=== PATIENT | female | born 1970 | race Caucasian/White ===

== ENCOUNTER 2019-01-31 18:19 | Inpatient (IN) | payer MEDICAID ==
[~2019-01-31] VITALS: Ht 154.9 cm; Wt 76.7 kg
[2019-01-31] MEDS ORDERED: COZAAR 25MG25 MG/TAB PO (18:21)
[2019-01-31] MEDS ORDERED: ASPIRIN 32325 MG/TAB PO (18:21)
[2019-01-31 18:25] VITALS: BP 130/92; PULSE 84; TEMP 97.6
[2019-01-31] MEDS ORDERED: FLEXERIL5 MG PO (19:19)
[2019-01-31 19:36] LABS: BASO % 0.3 % (0.0-2.0); EOS # 0.2 (0.0-0.7); EOS % 1.5 % (0-4.0); GRAN # 8.7 (1.4-6.5); GRAN % 74.1 % (42.2-75.2); HEMATOCRIT 40.5 % (37.0-47.0); HEMOGLOBIN 13.6 g/dl (12.5-16.0); LYMPH # 1.9 (1.2-3.4); LYMPH % 16.1 % (20.0-51.0); MEAN CELL VOLUME 85 fl (80.0-100.0); MEAN CORPUSCULAR HEMOGLOBIN 29 pg (27.0-31.0); MEAN CORPUSCULAR HGB CONC 34 g/dl (33.0-37.0); MEAN PLATELET VOLUME 9.6 fl (7.4-10.4); MONO # 0.9 (0.1-0.6); MONO % 7.3 % (1.7-9.3); PLATELET COUNT 185 K/mm3 (130-400); RED BLOOD COUNT 4.78 M/mm3 (4.10-5.30); REDCELL DISTRIBUTION WIDTH-CV 13.6 % (11.5-14.5)
[2019-01-31 19:37] LABS: INR 1.1 (0.8-3.0)
[2019-01-31 19:42] LABS: MAGNESIUM 1.8 mg/dL (1.6-2.3); PHOSPHOROUS 3.8 mg/dL (2.5-4.5)
[2019-01-31 19:59] LABS: ALBUMIN 3.4 gm/dL (3.5-5.0); BILIRUBIN,TOTAL 0.9 mg/dL (0.0-1.0); CALCIUM 8.8 mg/dL (8.4-10.2); CREATININE, serum 0.62 (0.52-1.25); POTASSIUM 4.2 mmol/L (3.4-5.0); TOTAL PROTEIN 6.2 gm/dL (6.4-8.2)
[2019-01-31 20:21] VITALS: BP 123/83; PULSE 80; TEMP 98.4
--- NOTE | 2019-01-31 21:54 | NUR ---
Patient resting in bed upon assessment. Pain medication administered, complains of headache after administration. This resolves after about 5 minutes. Patient has diminished hand outsole skiver on the left d/t previous stroke. Some slight facial drooping noted on the left side. Patient educated on utilizing call button for ambulation to the bathroom. IV fluids infusing to right forearm. Patient resting in bed watching television at this time.
[2019-02-01] VITALS (7 sets, daily range): BP systolic 113–145; BP diastolic 68–90; PULSE 80–100; TEMP 97.6–98.7
--- NOTE | 2019-02-01 00:57 | NUR ---
Patient awake in bed upon entering the room. States pain 8/10 on numeric scale to center upper abdomen radiating to right side of her back. PRN Hydromorphone given per orders.
[2019-02-01 06:44] LABS: BASO % 0.3 % (0.0-2.0); EOS # 0.1 (0.0-0.7); EOS % 1.3 % (0-4.0); GRAN # 8.4 (1.4-6.5); GRAN % 79.7 % (42.2-75.2); HEMOGLOBIN 12.1 g/dl (12.5-16.0); LYMPH # 1.1 (1.2-3.4); LYMPH % 10.1 % (20.0-51.0); MEAN CELL VOLUME 85 fl (80.0-100.0); MEAN CORPUSCULAR HEMOGLOBIN 29 pg (27.0-31.0); MEAN CORPUSCULAR HGB CONC 33 g/dl (33.0-37.0); MEAN PLATELET VOLUME 9.6 fl (7.4-10.4); MONO # 0.8 (0.1-0.6); MONO % 7.8 % (1.7-9.3); PLATELET COUNT 156 K/mm3 (130-400); RED BLOOD COUNT 4.24 M/mm3 (4.10-5.30); REDCELL DISTRIBUTION WIDTH-CV 13.7 % (11.5-14.5)
[2019-02-01 06:47] LABS: HEMATOCRIT 36.2 % (37.0-47.0)
--- NOTE | 2019-02-01 06:47 | NUR ---
Pain management continued throughout the night with relief using PRN Dilaudid. Denies any needs at this time.
[2019-02-01 07:02] LABS: ALBUMIN 3.1 gm/dL (3.5-5.0); BILIRUBIN,TOTAL 0.9 mg/dL (0.0-1.0); CHOLESTEROL RISK RATIO 4.5; CREATININE, serum 0.59 (0.52-1.25); POTASSIUM 3.9 mmol/L (3.4-5.0); TOTAL PROTEIN 5.9 gm/dL (6.4-8.2)
--- NOTE | 2019-02-01 07:15 | NUR ---
Report received from JULIOCESAR Cochran.
--- NOTE | 2019-02-01 08:00 | NUR ---
Assessment completed. Pt awake, in bed. Updated on plan of care r/t NPO status, surgical consult and pain medications. Pt verbalized understanding. Call light in reach.
[2019-02-01 08:27] LABS: MUCOUS Present /lpf; PH 5 (5-8); SQUAMOUS EPITHELIAL 0-2 /hpf; URINE APPEARANCE Clear; URINE BACTERIA None Seen /hpf; URINE BILIRUBIN Negative (NEGATIVE); URINE BLOOD 3+ (NEGATIVE); URINE COLOR Yellow; URINE GLUCOSE Negative (NEGATIVE); URINE KETONE 1+ (NEGATIVE); URINE LEUKOCYTE ESTERASE Negative (NEGATIVE); URINE NITRATE Negative (NEGATIVE); URINE PROTEIN(semi-quant) Negative (NEGATIVE); URINE RBC 0-2 /hpf; URINE UROBILINOGEN Negative (NEGATIVE)
[2019-02-01 08:31] LABS: COLLECTION METHOD CLEAN CATCH
--- NOTE | 2019-02-01 09:00 | NUR ---
Family at bedside. updated on pt status and plan of care. Pt's brother will take pt's home medications home.
[2019-02-01] MEDS ORDERED: TYLENOL 500MG500 MG PO (09:09)
--- NOTE | 2019-02-01 09:41 | NUR ---
BERNADINE perdomo attended clinical rounds and followed up with patient to discuss discharge plan. Also present was patient's brother and [id number]. Patient lives in [place] with her (Hernesto). Patient's PCP is Dr. Weiner and she uses the [place] [facility]. Patient uses a cane to ambulate and also has a wheelchair at home that she uses for public outings and long distances. Patient is independent with using the restroom but needs assistance with bathing which her provides. Patient also has a personal care worker (PLANNER CHIEF) through [employer] that comes into the home 3 days a week. Patient did not have a DPOA-HC completed but was intereseted in completing one while here. BERNADINE perdomo presented the form. Patient's brother read the form to her. Patient designated her . Patient Signed. BERNADINE perdomo and BERNADINE Rogers wtkyleed and signed. BERNADINE perdomo placed copy in chart and provided patient with original+2 copies. No identified needs at this time. BERNADINE to continue to follow to ensure safe discharge.
--- NOTE | 2019-02-01 09:50 | NUR ---
Ultrasound at bedside.
--- NOTE | 2019-02-01 11:50 | NUR ---
Pt in bed, talking with family at bedside. States her right abd/back pain improves with prn dilaudid. Pt wants to wait for shower at this time. Call light in reach.
--- NOTE | 2019-02-01 12:50 | NUR ---
resting in bed, bedside shift report received from JULIOCESAR Coyne
--- NOTE | 2019-02-01 12:52 | NUR ---
Report given to JULIOCESAR Lanier,
--- NOTE | 2019-02-01 14:30 | NUR ---
resting in bed, full assessment completed, see shift assessment for further info
--- NOTE | 2019-02-01 15:00 | NUR ---
c/o right sided upper abdominal pain, medicated with dilaudid 0.5mg slow IV
--- NOTE | 2019-02-01 15:15 | NUR ---
requesting to take a shower, JACQUE in to assist her with this
--- NOTE | 2019-02-01 19:02 | NUR ---
bedside shift report given to JULIOCESAR Sultana
--- NOTE | 2019-02-01 23:21 | NUR ---
Patient resting in bed. Complains of pain 10/10 on numeric scale. PRN Dilaudid administered. Noted to be effective. Upon reassessment, patient stated that the beef broth she drank made her stomach upset. Patient educated on sticking with ice chips for now if she needs something. No further complaints at this time. Will monitor pain.
[2019-02-02 04:04] VITALS: BP 108/85; PULSE 89; TEMP 98.1
[2019-02-02 06:49] LABS: BASO % 0.4 % (0.0-2.0); EOS # 0.2 (0.0-0.7); EOS % 2.8 % (0-4.0); GRAN # 6.1 (1.4-6.5); GRAN % 74.9 % (42.2-75.2); HEMOGLOBIN 11.4 g/dl (12.5-16.0); MEAN CELL VOLUME 86 fl (80.0-100.0); MEAN CORPUSCULAR HEMOGLOBIN 29 pg (27.0-31.0); MEAN CORPUSCULAR HGB CONC 33 g/dl (33.0-37.0); MEAN PLATELET VOLUME 9.5 fl (7.4-10.4); MONO # 0.7 (0.1-0.6); MONO % 8.8 % (1.7-9.3); PLATELET COUNT 165 K/mm3 (130-400); REDCELL DISTRIBUTION WIDTH-CV 13.2 % (11.5-14.5)
[2019-02-02 07:00] LABS: ALBUMIN 2.9 gm/dL (3.5-5.0); BILIRUBIN,TOTAL 1.2 mg/dL (0.0-1.0); CREATININE, serum 0.54 (0.52-1.25); POTASSIUM 3.7 mmol/L (3.4-5.0); TOTAL PROTEIN 5.7 gm/dL (6.4-8.2)
[2019-02-02 07:02] LABS: HEMATOCRIT 34.2 % (37.0-47.0)
[2019-02-02 07:41] VITALS: BP 125/78; PULSE 92; TEMP 97.8
--- NOTE | 2019-02-02 07:54 | NUR ---
Alert and oriented X4. Very pleasant. Left sided weakness d/t hx of stroke. Does very well. Standbye assist with cane. Tolerated well. Reports not passing gas or bowel movement since admission. REports pain at an 8/10 in the back that radiates to the left upper quadrant of abdomen. No needs at this time. Call light in reach. Will continue to monitor.
--- NOTE | 2019-02-02 08:15 | NUR ---
Patient in bed resting. Alert and oriented x 3. Shift assessment complete. Student in room with patient. Patient c/o pain 8/10 in back that radiats to LUQ, medications given per orders. Left sided neglect noted. IV fluids infusing via pump. Denies further needs at this time.
--- NOTE | 2019-02-02 11:39 | NUR ---
First visit from the putter in. No needs right now.
[2019-02-02 12:00] VITALS: BP 143/93; PULSE 83; TEMP 97.9
[2019-02-02 15:17] VITALS: BP 128/85; PULSE 78; TEMP 97.9
--- NOTE | 2019-02-02 18:17 | NUR ---
Patient resting in bed with spouse visiting. Pain management continues. No complaints of pain or discomfort at this time. Call light within reach. Reported off to ellie, JULIOCESAR Randle.
--- NOTE | 2019-02-02 18:52 | NUR ---
Patient has been up ambulating in room and guaman with student. States pain 9/10 to back radiating to abdomen, medications given per orders. IVF continue to infuse via pump per orders. Denies further needs at this time.
[2019-02-02 19:15] VITALS: BP 130/83; PULSE 79; TEMP 98.4
[2019-02-02 23:08] VITALS: BP 142/85; PULSE 72; TEMP 97.9
--- NOTE | 2019-02-03 01:51 | NUR ---
Patient resting with eyes closed at this time. Requests dilaudid roughly every 4 hours. Noted to be effective. Fluids continue to right forearm. Patient denies any further needs.
[2019-02-03 03:56] VITALS: BP 132/75; PULSE 89; TEMP 97.9
--- NOTE | 2019-02-03 06:29 | NUR ---
Patient resting in bed with eyes closed. Pain well controlled throughout the night. Denies any further needs. Will report off to day shift nurse.
[2019-02-03 07:39] LABS: BASO % 0.3 % (0.0-2.0); EOS # 0.3 (0.0-0.7); EOS % 4.7 % (0-4.0); GRAN # 4.3 (1.4-6.5); GRAN % 65.3 % (42.2-75.2); HEMOGLOBIN 11.3 g/dl (12.5-16.0); LYMPH # 1.2 (1.2-3.4); LYMPH % 18.7 % (20.0-51.0); MEAN CELL VOLUME 84 fl (80.0-100.0); MEAN CORPUSCULAR HEMOGLOBIN 29 pg (27.0-31.0); MEAN CORPUSCULAR HGB CONC 34 g/dl (33.0-37.0); MEAN PLATELET VOLUME 9.9 fl (7.4-10.4); MONO # 0.7 (0.1-0.6); MONO % 10.1 % (1.7-9.3); PLATELET COUNT 163 K/mm3 (130-400); RED BLOOD COUNT 3.95 M/mm3 (4.10-5.30); REDCELL DISTRIBUTION WIDTH-CV 13.3 % (11.5-14.5)
[2019-02-03 07:44] LABS: CALCIUM 8.1 mg/dL (8.4-10.2); CREATININE, serum 0.5 (0.52-1.25); POTASSIUM 3.2 mmol/L (3.4-5.0)
[2019-02-03 07:50] LABS: HEMATOCRIT 33.3 % (37.0-47.0)
--- NOTE | 2019-02-03 08:27 | NUR ---
PT IN BED AND AWAKENS EASILY. ALERT AND ORIENTED X 4 PT STATES PAIN IS 8 OUT OF 10 SCALE. MADE WORSE WHEN MOVING. DILAUDED 0.5MG GIVEN IV FOR PRN PAIN TO ABDOMEN. BOWEL SOUNDS PRESENT ALL FOUR QUADS. RESP EVEN AND UNLABORED. PT HAS LEFT SIDED WEAKNESS TO LEFT LEG AND PARTIAL PARALYSIS TO LEFT ARM. HAS COMMODE NEXT TO BEDSIDE AND REMINDED PT TO USE CALL LIGHT WHEN NEEDING TO AMBULATE TO COMMODE. PT VERBALIZED UNDERSTANDING.
[2019-02-03 08:41] VITALS: BP 140/81; PULSE 79; TEMP 97.5
--- NOTE | 2019-02-03 08:55 | NUR ---
Patient in bed resting, alert and oriented x 3. Shift assessment complete. States mild pain in back that radiates to abdomen. IV fluids infusing to right AC via pump per orders. Left sided neglect noted d/t history of stroke. Patient independent in room with cane. Denies further needs at this time.
--- NOTE | 2019-02-03 09:40 | NUR ---
Hospitalist and care team in to see patient. Dr. Stone in to see patient.
[2019-02-03] MEDS ORDERED: NORCO 325 MG-51 TAB PO (11:59)
[2019-02-03 12:21] VITALS: BP 137/97; PULSE 75; TEMP 97.7
--- NOTE | 2019-02-03 13:30 | NUR ---
Discharge instructions reviewed with patient. Student provided instructions. INT discontinued by acute care nursing assistant. catheter tip intact. Patient verbalized understanding. Denies further questions. Patient out by wheelchair.
--- NOTE | 2019-02-03 13:38 | NUR ---
WENT OVER DISCHARGE SUMMARY INCLUDING MEDICATION CHANGES, NEW PRESCRIPTION FOR [facility], PHYSICIAN FOLLOW UP, S/S OF INFECTION, AND WHEN TO CALL THE DOCTOR. PT VERBALIZED UNDERSTANDING. GATHERED BELONGINGS. HERE AT BEDSIDE. 18g IV REMOVED WITH CATHETER INTACT, PT TOLERATED WELL. PT LEFT FACILITY VIA WHEELCHAIR TO PRIVATE VEHICLE, WITH DRIVING.
== END 2019-02-03 13:30 | disposition home or self-care (01) | DRG 439 ==
LOC: SURG 18:19
PROVIDERS: Nurse Practitioner Family; Physician Assistant; ADMIT Internal Medicine
DX: K85.90 Acute pancreatitis without necrosis or infection, unspecified (principal); I69.354 Hemiplegia and hemiparesis following cerebral infarction affecting left non-dominant side; Q85.01 Neurofibromatosis, type 1; I10 Essential (primary) hypertension; E78.5 Hyperlipidemia, unspecified; F41.0 Panic disorder [episodic paroxysmal anxiety]; Z87.891 Personal history of nicotine dependence; E87.6 Hypokalemia; K80.20 Calculus of gallbladder without cholecystitis without obstruction
CPT/HCPCS: 99222-AI; 99231-AI; 99239; J1170; J1650; J2405; J7030

== ENCOUNTER 2020-04-10 10:57 | Outpatient (RCR) | payer MEDICAID ==
[~2020-04-10 10:57] MED LIST: ASPIRIN 32325 MG/TAB PO; COZAAR 25MG25 MG/TAB PO; FLEXERIL5 MG PO; NORCO 325 MG-51 TAB PO; TYLENOL 500MG500 MG PO
== END 2020-07-09 ==
LOC: WSC
DX: R25.2 Cramp and spasm (principal)

== ENCOUNTER 2020-07-03 11:00 | Outpatient (RCR) | payer MEDICAID ==
[2020-07-11] MEDS ORDERED: LIPITOR 10MG10 MG PO (09:13)
[2020-07-11] MEDS ORDERED: PLAVIX 75MG TAB75 MG PO (09:13)
[2020-07-11] MEDS ORDERED: LEXAPRO 5MG5 MG PO (09:14)
[2020-07-11] MEDS ORDERED: EMGALITY120 MG/1 M SQ (09:14)
[2020-07-11] MEDS ORDERED: PERCOCET 325 MG1 TA2 PO (09:15)
[2020-07-11] MEDS ORDERED: NORVASC 5MG5 MG/TAB PO (09:15)
== END 2020-07-14 | disposition home or self-care (01) ==
LOC: MKS.ESL.PT
DX: R25.2 Cramp and spasm (principal)

== ENCOUNTER 2020-07-11 10:00 | Outpatient (CLI) | payer MEDICAID ==
[2020-07-11] VITALS (8 sets, daily range): BP systolic 123–135; BP diastolic 88–96; PULSE 71–82; TEMP 97.6
[~2020-07-11] VITALS: Ht 155 cm; Wt 76.9 kg
[2020-07-11 09:47] LABS: HEMATOCRIT 43.4 % (37.0-47.0); HEMOGLOBIN 14.7 g/dl (12.5-16.0); MEAN CELL VOLUME 84 fl (80.0-100.0); MEAN CORPUSCULAR HEMOGLOBIN 28 pg (27.0-31.0); MEAN CORPUSCULAR HGB CONC 34 g/dl (33.0-37.0); MEAN PLATELET VOLUME 9.9 fl (7.4-10.4); PLATELET COUNT 268 K/mm3 (130-400); REDCELL DISTRIBUTION WIDTH-CV 12.3 % (11.5-14.5)
[2020-07-11 09:50] LABS: CREATININE, serum 0.73 (0.52-1.25); POTASSIUM 3.9 mmol/L (3.4-5.0)
[2020-07-11 09:57] LABS: PROTHROMBIN TIME 11.4 SECONDS (9.7-12.8)
[~2020-07-11 10:00] MED LIST changes: +EMGALITY120 MG/1 M SQ; +LEXAPRO 5MG5 MG PO; +LIPITOR 10MG10 MG PO; +NORVASC 5MG5 MG/TAB PO; +PERCOCET 325 MG1 TA2 PO; +PLAVIX 75MG TAB75 MG PO
--- NOTE | 2020-07-11 12:00 | NUR ---
DC instructions reviewed with pt and her daughter. Both express understanding. Pt is assisted out by wheelchair with personal belongings and loop recorder equipment. Dressing over incision site remains clean, dry and intact. IV DC'd with catheter intact, and bleeding at site controlled.
== END 2020-07-11 12:10 | disposition home or self-care (01) ==
LOC: COL.RAD 10:00
PROVIDERS: Internal Medicine Adult Congenital Heart Disease
DX: I63.9 Cerebral infarction, unspecified (principal); I08.1 Rheumatic disorders of both mitral and tricuspid valves
CPT/HCPCS: J2704

== ENCOUNTER 2020-09-30 13:00 | Outpatient (RCR) | payer MEDICAID | END 2020-10-13 | disposition home or self-care (01) | LOC: MKS.ESL.OT | DX: G81.94 Hemiplegia, unspecified affecting left nondominant side (principal) ==

== ENCOUNTER → 2020-10-14 | Outpatient (RCR) | payer MEDICAID | LOC: MKS.ESL.OT | DX: R25.9 Unspecified abnormal involuntary movements (principal) ==

== ENCOUNTER 2020-12-23 11:15 | Outpatient (RCR) | payer MEDICARE, MEDICAID ==
[~2020-12-23 11:15] MED LIST changes: -LIPITOR 10MG10 MG PO; +LIPITOR 40MG TA40 MG PO; +NORCO 325 MG-7.1 TAB PO; -PERCOCET 325 MG1 TA2 PO
== END 2021-01-14 | disposition home or self-care (01) ==
LOC: MKS.ESL.PT
DX: G81.14 Spastic hemiplegia affecting left nondominant side (principal)

== ENCOUNTER 2021-03-06 13:50 | Outpatient (RCR) | payer MEDICARE, MEDICAID | END 2021-06-04 | disposition home or self-care (01) | LOC: WSST | DX: R41.841 Cognitive communication deficit (principal) ==

== ENCOUNTER → 2021-04-18 | Outpatient (CLI) | payer MEDICARE, MEDICAID ==
[~2021-04-18] MED LIST changes: +LUNESTA2 MG PO; +NEURONTIN600 MG/TAB PO; +VOLTAREN GEL 1%1 TU TP
== END ==
LOC: COL.CARD 09:08
DX: G81.14 Spastic hemiplegia affecting left nondominant side (principal); I63.411 Cerebral infarction due to embolism of right middle cerebral artery; R56.9 Unspecified convulsions; C72.30 Malignant neoplasm of unspecified optic nerve; Q85.00 Neurofibromatosis, unspecified

== ENCOUNTER 2021-04-21 14:45 | Outpatient (RCR) | payer MEDICARE, MEDICAID ==
[~2021-04-21 14:45] MED LIST changes: -LUNESTA2 MG PO; -NEURONTIN600 MG/TAB PO; -VOLTAREN GEL 1%1 TU TP
== END 2021-05-22 | disposition home or self-care (01) ==
LOC: MKS.ESL.PT
DX: I69.359 Hemiplegia and hemiparesis following cerebral infarction affecting unspecified side (principal)

== ENCOUNTER 2021-08-08 12:55 | Day surgery (SDC) | payer MEDICARE, MEDICAID ==
[2021-08-08] VITALS (7 sets, daily range): BP systolic 102–128; BP diastolic 77–93; PULSE 78–90; TEMP 98.3
[~2021-08-08] VITALS: Ht 154.9 cm; Wt 79.1 kg
[2021-08-08] MEDS ORDERED: VOLTAREN GEL 1%1 TU TP (13:07)
[2021-08-08] MEDS ORDERED: LUNESTA2 MG PO (13:10)
[2021-08-08] MEDS ORDERED: NEURONTIN600 MG/TAB PO (13:11)
--- NOTE | 2021-08-08 14:13 | NUR ---
industrial relations worker met with patient alone as she had verbalized emotional struggles. Patient was open and shared that she doesn't feel like she wants "to be here anymore" and that she is tired of her struggles due to her physical limitations from a previous stroke. Worker asked patient if she did not want to be alive and if she had plans to harm herself. Patient stated she would never harm herself as she would then "go to hell". Patient states she could never harm herself. Patient states that Xochilt Henry, her primary care provider, had her on Lexapro and she doesn't think it helped and told the nursing staff she stopped taking it. Patient stated that she has a pentecostalism and Reproductive Endocrinologist Shan as an option reach out to for support. Patient states she has been in therapy with [facility] and needs to call and schedule a zoom therapy visit. Patient has medicaid and can also utilize medicaid transportation program. Worker obtained patient's permission to contact Xochilt's office and advise of the above struggles and needing to get an appointment set. Worker provided support and encouragement that patient has the above mentioned support, however, needs to take the step to reach out to them. Worker collaborated with the patient's nurse regarding the above information. Worker left a message with Xochilt's nurse to call regarding the patient.
--- NOTE | 2021-08-08 14:54 | NUR ---
ash worker spoke with Xochilt Galan's nurse and advised of patient's concerns.
--- NOTE | 2021-08-08 16:42 | NUR ---
Pt returned via cart approx 1520 to bay 3. Pt drowsy, arousable to name. Spouse present in room when Dr Ayers in to visit post procedure. VSS-see flowsheet. Pt to stay no less than 2 hours post procedure to monitor for abdominal pain, nausea or vomiting. Pt has reported "discomfort, but not bad." Pt also tolerated orange jello. Assisted pt in eating since she is limited with her LUE.
--- NOTE | 2021-08-08 17:07 | NUR ---
Dr Ayers notified of pts progress and okay to dc home. IV removed, pressure dressing applied. Staff assisted pt off cart after dressed. Discharge teaching completed with pt and and verbalized understanding. Taken via wheelchair to private vehicle for dc home with to drive.
== END 2021-08-08 17:06 | disposition home or self-care (01) ==
LOC: SDCO 12:55
DX: K31.5 Obstruction of duodenum (principal); K83.8 Other specified diseases of biliary tract; K86.89 Other specified diseases of pancreas; K31.89 Other diseases of stomach and duodenum; I10 Essential (primary) hypertension; I48.0 Paroxysmal atrial fibrillation; E78.5 Hyperlipidemia, unspecified; J45.909 Unspecified asthma, uncomplicated; F41.9 Anxiety disorder, unspecified; F32.A Depression, unspecified; G43.909 Migraine, unspecified, not intractable, without status migrainosus; E66.9 Obesity, unspecified; I69.332 Monoplegia of upper limb following cerebral infarction affecting left dominant side; I69.311 Memory deficit following cerebral infarction; I69.328 Other speech and language deficits following cerebral infarction; F17.210 Nicotine dependence, cigarettes, uncomplicated; Z90.6 Acquired absence of other parts of urinary tract; Z95.818 Presence of other cardiac implants and grafts; Z86.718 Personal history of other venous thrombosis and embolism; Z79.02 Long term (current) use of antithrombotics/antiplatelets; Z79.899 Other long term (current) drug therapy
CPT/HCPCS: C1769; J2704; J7030; Q9967

== ENCOUNTER 2021-08-26 13:00 | Outpatient (RCR) | payer MEDICARE, MEDICAID ==
[~2021-08-26 13:00] MED LIST changes: +LUNESTA2 MG PO; +NEURONTIN600 MG/TAB PO; +VOLTAREN GEL 1%1 TU TP
== END 2021-09-01 | disposition home or self-care (01) ==
LOC: MKS.ESL.PT
DX: I69.954 Hemiplegia and hemiparesis following unspecified cerebrovascular disease affecting left non-dominant side (principal)

== ENCOUNTER 2021-11-20 14:30 | Outpatient (RCR) | payer MEDICARE, MEDICAID ==
[2022-03-04] VITALS (42 sets, daily range): O2SAT 85–98
== END 2021-12-08 | disposition home or self-care (01) ==
LOC: MKS.ESL.OT
DX: I69.354 Hemiplegia and hemiparesis following cerebral infarction affecting left non-dominant side (principal)

== ENCOUNTER 2021-12-30 12:45 | Outpatient (RCR) | payer MEDICARE, MEDICAID | END 2022-01-08 | disposition home or self-care (01) | LOC: MKS.ESL.PT | DX: G81.92 Hemiplegia, unspecified affecting left dominant side (principal) ==

== ENCOUNTER 2022-03-03 14:14 | Inpatient (IN) | payer MEDICARE, MEDICAID ==
[2022-03-03] VITALS (297 sets, daily range): BP systolic 71–132; BP diastolic 50–106; PULSE 16–89; TEMP 98.1–98.7; O2SAT 88–99
[~2022-03-03] VITALS: Ht 154.9 cm; Wt 76.2 kg
[2022-03-03 15:04] LABS: BASO # 0.1 K/mm3 (0.0-0.2); BASO % 0.8 % (0.0-2.0); EOS # 0.2 K/mm3 (0.0-0.7); EOS % 1.9 % (0.0-4.0); GRAN # 5.2 K/mm3 (1.4-6.5); GRAN % 66.5 % (42.2-75.2); HEMATOCRIT 43.1 % (37.0-47.0); HEMOGLOBIN 14.6 g/dl (12.5-16.0); LYMPH # 1.8 K/mm3 (1.2-3.4); LYMPH % 22.7 % (20.0-51.0); MEAN CELL VOLUME 84 fl (80.0-100.0); MEAN CORPUSCULAR HEMOGLOBIN 28 pg (27-31); MEAN CORPUSCULAR HGB CONC 34 g/dl (33.0-37.0); MEAN PLATELET VOLUME 9.3 fl (7.4-10.4); MONO # 0.6 K/mm3 (0.1-0.6); MONO % 7.2 % (1.7-9.3); PLATELET COUNT 191 K/mm3 (130-400); RED BLOOD COUNT 5.15 M/mm3 (4.10-5.30); REDCELL DISTRIBUTION WIDTH-CV 13.1 % (11.5-14.5)
[2022-03-03 15:09] LABS: INR 1.1 (0.8-3.0); PROTHROMBIN TIME 12.5 SECONDS (9.7-12.8)
[2022-03-03 15:21] LABS: ALBUMIN 3.4 gm/dL (3.5-5.0); BILIRUBIN,TOTAL 0.5 mg/dL (0.2-1.2); C-REACTIVE PROTEIN 1.05 mg/dL (0.00-0.50); CALCIUM 8.8 mg/dL (8.4-10.2); CREATININE, serum 0.73 mg/dL (0.57-1.11); POTASSIUM 3.9 mmol/L (3.5-4.5); TOTAL PROTEIN 6.5 gm/dL (6.2-8.1)
[2022-03-03 15:32] LABS: COLLECTION METHOD IN
[2022-03-03 15:38] LABS: MUCOUS Present (NOT PRESENT); PH 6 (5-8); SQUAMOUS EPITHELIAL 0-2 /hpf (0-10); URINE APPEARANCE Hazy (CLEAR/HAZY); URINE BACTERIA None Seen /hpf (NONE SEEN); URINE BILIRUBIN Negative (NEGATIVE); URINE BLOOD Negative (NEGATIVE); URINE COLOR Yellow (YELLOW); URINE GLUCOSE Negative (NEGATIVE); URINE KETONE Negative (NEGATIVE); URINE LEUKOCYTE ESTERASE Negative (NEGATIVE); URINE NITRATE Negative (NEGATIVE); URINE PROTEIN(semi-quant) Negative (NEGATIVE); URINE RBC 0-2 /hpf (0-2)
[2022-03-03] MEDS ORDERED: ZYRTEC 10MG10 MG PO (17:19)
[2022-03-03] MEDS ORDERED: PROTONIX 40MG T40 MG PO (17:20)
[2022-03-03] MEDS ORDERED: AMBIEN CR 12.12.5 MG PO (17:20)
[2022-03-03] MEDS ORDERED: KLONOPIN2 MG PO (17:20)
[2022-03-03] MEDS ORDERED: LEXAPRO 10MG10 MG PO (17:20)
[2022-03-03] MEDS ORDERED: COMBIRESP IH (17:21)
[2022-03-04] VITALS (494 sets, daily range): BP systolic 123–171; BP diastolic 77–113; PULSE 75–99; TEMP 97.8–98.7; O2SAT 69–99
[2022-03-04 05:27] LABS: BASO % 0.4 % (0.0-2.0); EOS # 0.2 K/mm3 (0.0-0.7); EOS % 2.2 % (0.0-4.0); GRAN # 4.4 K/mm3 (1.4-6.5); GRAN % 65.2 % (42.2-75.2); HEMATOCRIT 38.1 % (37.0-47.0); LYMPH # 1.6 K/mm3 (1.2-3.4); LYMPH % 24.1 % (20.0-51.0); MEAN CELL VOLUME 88 fl (80.0-100.0); MEAN CORPUSCULAR HEMOGLOBIN 29 pg (27-31); MEAN CORPUSCULAR HGB CONC 33 g/dl (33.0-37.0); MEAN PLATELET VOLUME 9.9 fl (7.4-10.4); MONO # 0.5 K/mm3 (0.1-0.6); MONO % 7.2 % (1.7-9.3); PLATELET COUNT 165 K/mm3 (130-400); RED BLOOD COUNT 4.33 M/mm3 (4.10-5.30)
[2022-03-04 05:29] LABS: HEMOGLOBIN 12.4 g/dl (12.5-16.0)
[2022-03-04 05:40] LABS: ALBUMIN 2.8 gm/dL (3.5-5.0); CALCIUM 6.8 mg/dL (8.4-10.2); CHOLESTEROL RISK RATIO 7.6; CREATININE, serum 0.54 mg/dL (0.57-1.11); MAGNESIUM 1.5 mg/dL (1.6-2.6); PHOSPHOROUS 2.7 mg/dL (2.3-4.7)
[2022-03-04 05:47] LABS: POTASSIUM 2.9 mmol/L (3.5-4.5)
--- NOTE | 2022-03-04 06:33 | NUR ---
ASSUMED CARE OF PATIENT AFTER RECEIVING BEDSIDE REPORT. ASSESSMENT COMPLETED, VSS. PATIENT DENIES COMPLAINTS OR CONCERNS. PATIENT'S NEUROLOGICAL STATUS CONTINUED TO IMPROVE THROUGHOUT THE SHIFT. DAY SHIFT REPORTED AN NIH OF 10, [facility] INITIAL NIH WAS 7 AND IMRPOVED TO 6. PATIENT BECAME HYPOTENSIVE AT ONE POINT OVER NIGHT, REPORTED TO DR. MENESES, NO NEW ORDERS RECEIVED AND INSTRUCTED RN TO MONITOR PATIENT FOR SYMPTOMS. SPOKE WITH HOSPITALIST WHO GAVE AN ORDER FOR MAINTENANCE FLUIDS AND ALBUMIN. PATIENT TOLERATED WELL. NO ACUTE EVENTS OVERNIGHT. BEDSIDE REPORT TO BE GIVEN TO ONCOMING SHIFT.
--- NOTE | 2022-03-04 07:30 | NUR ---
Teresa from [facility] bedside.
--- NOTE | 2022-03-04 09:21 | NUR ---
SW met with the patient to discuss discharge plan. The patient lives in [place] with her , Hernesto (ph#[phone]). She reports needing assistance with bathing and has a cane and wheelchair. She states that she primarily uses the cane. She states that her daughter, Yane Singh, is employed through [employer] and is her caregiver. She states that she receives services Wednesday- from around 8-11 AM to 4 PM. Her daughter helps her bathe. The patient's primary care provider is Xochilt Henry PA-C and she receives her medications from [place] [facility]. The patient's DPOA-HC is in EMR and it designates her . The patient plans on returning home with her and rusuming services through [employer] upon discharge. PT/OT have been ordered. SW to continue to monitor. *Discharge plan: home with *
--- NOTE | 2022-03-04 11:54 | NUR ---
PT LEAVING TO MRI VIA WHEELCHAIR WITH TECH.
--- NOTE | 2022-03-04 15:53 | NUR ---
PT STATED THAT SHE IS STARTING TO GET ANXIOUS IN THE ROOM, THAT SHE STARTS TO FEEL ANXIOUS WHEN SHE CANNOT GET UP AND WALK AROUND.
[2022-03-05] VITALS: BP 127/87; PULSE 89; TEMP 97.5
--- NOTE | 2022-03-05 03:53 | NUR ---
PATIENT UP TO ROOM 343. ALERT AND ORIENTED. AMBULATED TO BED WITH STANDBY ASSIST. L SIDED WEAKNESS NOTED. L FACIAL DROOP ALSO PRESENT. PATIENT ALERT AND ORIENTED. TELE REPLACED AND NEW PADS APPLIED. IV TO R AC REMOVED. R HAND IV PATENT AND FLUSHES. DENIES PAIN AT THIS TIME. MED RX COMPLETED.
[2022-03-05 04:19] VITALS: BP 114/76; PULSE 82; TEMP 98.6
[2022-03-05 06:40] LABS: BASO % 0.4 % (0.0-2.0); EOS # 0.2 K/mm3 (0.0-0.7); GRAN # 4.6 K/mm3 (1.4-6.5); GRAN % 60.3 % (42.2-75.2); HEMATOCRIT 38.8 % (37.0-47.0); HEMOGLOBIN 13.1 g/dl (12.5-16.0); LYMPH # 2.2 K/mm3 (1.2-3.4); LYMPH % 28.6 % (20.0-51.0); MEAN CELL VOLUME 85 fl (80.0-100.0); MEAN CORPUSCULAR HEMOGLOBIN 29 pg (27-31); MEAN CORPUSCULAR HGB CONC 34 g/dl (33.0-37.0); MEAN PLATELET VOLUME 9.7 fl (7.4-10.4); MONO # 0.6 K/mm3 (0.1-0.6); MONO % 8.2 % (1.7-9.3); PLATELET COUNT 183 K/mm3 (130-400); RED BLOOD COUNT 4.57 M/mm3 (4.10-5.30); REDCELL DISTRIBUTION WIDTH-CV 13.2 % (11.5-14.5)
[2022-03-05 07:04] LABS: ALBUMIN 3.2 gm/dL (3.5-5.0); CALCIUM 8.5 mg/dL (8.4-10.2); CREATININE, serum 0.71 mg/dL (0.57-1.11); MAGNESIUM 2.6 mg/dL (1.6-2.6); PHOSPHOROUS 4.8 mg/dL (2.3-4.7); POTASSIUM 3.8 mmol/L (3.5-4.5)
[2022-03-05 07:40] VITALS: BP 126/77; PULSE 70; TEMP 97.8
[2022-03-05] MEDS ORDERED: LIPITOR20 MG PO (09:08)
[2022-03-05] MEDS ORDERED: NICODERM C21 MG/PATC TD (09:09)
[2022-03-05] MEDS ORDERED: CHANTIX 0.5MG0.5 MG PO (09:11)
== END 2022-03-05 11:00 | disposition home or self-care (01) | DRG 62 ==
LOC: COL.ER 14:14 → ICU 16:33 → SURG 16:33
PROVIDERS: Family Medicine; Internal Medicine; ADMIT Internal Medicine
DX: I63.9 Cerebral infarction, unspecified (principal); I69.954 Hemiplegia and hemiparesis following unspecified cerebrovascular disease affecting left non-dominant side; Q85.01 Neurofibromatosis, type 1; E78.5 Hyperlipidemia, unspecified; R47.81 Slurred speech; F41.0 Panic disorder [episodic paroxysmal anxiety]; I10 Essential (primary) hypertension; G89.29 Other chronic pain; F17.210 Nicotine dependence, cigarettes, uncomplicated; M25.519 Pain in unspecified shoulder; R29.810 Facial weakness; E78.1 Pure hyperglyceridemia
CPT/HCPCS: 99223-AI; 99233-AI; 99239; A9575; J3101; J3475; J7030; P9047; Q9967

== ENCOUNTER 2022-03-10 20:05 | Observation (INO) | payer MEDICARE, MEDICAID ==
[~2022-03-10] VITALS: Ht 152.4 cm; Wt 77.0 kg
[~2022-03-10 20:05] MED LIST changes: +AMBIEN CR 12.12.5 MG PO; +CHANTIX 0.5MG0.5 MG PO; +COMBIRESP IH; +KLONOPIN2 MG PO; +LEXAPRO 10MG10 MG PO; +LIPITOR20 MG PO; +NICODERM C21 MG/PATC TD; +PROTONIX 40MG T40 MG PO; +ZYRTEC 10MG10 MG PO
--- NOTE | 2022-03-10 22:40 | NUR ---
Arrived via EMS from [facility] ER, DX r/o CVA, states she feels like she is back to her baseling, no facial drooping or slurred speech noted- has left sided weaknes from previous stroke- Up to bathroom with assist/cane, Tele on, INT started to left wrist - states left shoulder pain -requesting her home dose of Java- will let the CHANEL helms know
[2022-03-10 23:40] VITALS: BP 124/74; PULSE 83; TEMP 97.8
[2022-03-11 03:26] VITALS: BP 111/76; PULSE 73; TEMP 97.6
--- NOTE | 2022-03-11 05:18 | NUR ---
Has been sleeping since [place] was given for left arm/shoulder chronic pain { states has a shoulder dislocation} Did have a Pepsi tiara kline by Kathia BUCHANAN, no problems swollowing. No slurred speech or facial droop noted
--- NOTE | 2022-03-11 05:59 | NUR ---
PT REFUSED THIS MRI. SHE STATES THAT DR LAWSON WILL ORDER ONE WHEN SHE SEES HER ON 04/06 AND INSURANCE WILL NOT WANT TO PAY FOR TWO.
[2022-03-11 06:18] LABS: BASO % 0.4 % (0.0-2.0); EOS # 0.2 K/mm3 (0.0-0.7); EOS % 2.1 % (0.0-4.0); GRAN # 5.4 K/mm3 (1.4-6.5); GRAN % 59.7 % (42.2-75.2); HEMATOCRIT 42.4 % (37.0-47.0); LYMPH # 2.6 K/mm3 (1.2-3.4); LYMPH % 28.7 % (20.0-51.0); MEAN CELL VOLUME 86 fl (80.0-100.0); MEAN CORPUSCULAR HEMOGLOBIN 29 pg (27-31); MEAN CORPUSCULAR HGB CONC 33 g/dl (33.0-37.0); MEAN PLATELET VOLUME 9.9 fl (7.4-10.4); MONO # 0.8 K/mm3 (0.1-0.6); MONO % 8.4 % (1.7-9.3); PLATELET COUNT 185 K/mm3 (130-400); RED BLOOD COUNT 4.91 M/mm3 (4.10-5.30); REDCELL DISTRIBUTION WIDTH-CV 13.4 % (11.5-14.5)
[2022-03-11 06:44] LABS: CALCIUM 8.3 mg/dL (8.4-10.2); CREATININE, serum 0.62 mg/dL (0.57-1.11); POTASSIUM 3.9 mmol/L (3.5-4.5)
--- NOTE | 2022-03-11 07:30 | NUR ---
Assessment complete. A&Ox4. Denies nausea/shortness of breath. VS stable. Chronic pain to left shoulder-denies need for intervention. Noted to have weakness to left side. Speech is clear. TELE reports SR. INT to left wrist flushes without difficulty. Noted to have small raised areas all over body-states it is chronic. Plan of care discussed for this shift to include meds/MRI/calling for questions/concerns. Verbalizes understanding. Call light in reach. Will monitor.
--- NOTE | 2022-03-11 08:15 | NUR ---
Call from imaging stating patient refused head MRI. Will notify provider.
[2022-03-11 08:29] VITALS: BP 132/90; PULSE 78; TEMP 97.9
--- NOTE | 2022-03-11 11:14 | NUR ---
BERNADINE met with the patient to discuss discharge plan and re-admit. The patient recently discharged from the hospital, 03/05, and returned home with her and resumed private duty services from [employer]. The patient lives in [place] with her , Hernesto (ph#[phone]). She reports needing assistance with bathing and has a cane and wheelchair. The patient's daughter, Yane Singh (ph#[phone]), is employed through [employer] and is her executive personal assistant, Wednesday-. The patient's PCP is Xochilt Henry PA-C and she receives her medications from [place] [address]. The patient's DPOA-HC is in EMR and it designates her . SW inquired how everything was going before being admitted. The patient states that things were good. SW inquired about whether she was taking her medications as prescribed. The patient states that she forgot to take her medications. She states that her meds are on her nightstand, but she cannot read the pill bottles. SW discussed the option of having her daughter or set up the medications in a pill box or the option of getting home health services set up for care home to help with medication management. The patient states that her daughter can help set up her meds and she will talk to her about this. The patient plans on returning home with her and previous services upon discharge. SW contacted the patient's daughter, Yane Singh, to review the above. Yane confirms that she is the patient's executive personal assistant on Mondays 8AM-4PM and 8AM-3PM. Yane states that she does provide medication management to the patient. She states that she sets them out each day and gives the meds to the patient. She states that the patient has been taking her medications, besides yesterday. She states that she will look at getting a new pill box and setting the medications up in the that. She had no other concerns for BERNADINE. *Discharge plan: home with and private duty services*
--- NOTE | 2022-03-11 11:26 | NUR ---
Family called patient and discussed brain MRI. Patient agrees to do MRI now. New order placed and MRI notified.
[2022-03-11 11:52] VITALS: BP 94/60; PULSE 84; TEMP 98
[2022-03-11 16:15] VITALS: BP 93/64; PULSE 89; TEMP 97.3
--- NOTE | 2022-03-11 17:55 | NUR ---
Patient had an uneventful day. Denied pain/nausea/shortness of breath. VS stable. Noted to have left sided weakness. Did have MRI today. Tele reporting SR. Denies current needs. Call light in reach. Will monitor.
[2022-03-11 21:07] VITALS: BP 110/73; PULSE 82; TEMP 98.3
[2022-03-12 03:19] VITALS: BP 102/66; PULSE 88; TEMP 98
[2022-03-12 03:58] VITALS: BP 100/86; PULSE 92; TEMP 97.6
[2022-03-12 08:01] VITALS: BP 132/86; PULSE 78; TEMP 97.3
--- NOTE | 2022-03-12 08:43 | NUR ---
PT RESTING IN BED. MORNING MEDICATIONS GIVEN. SHIFT ASSESSMENT COMPLETED. PT DENIES ANY PAIN OR INCREASED WEAKNESS AT THIS TIME. UNSTEADY GAIT NOTED, PT FEELS SHES AT BASELINE. PT EAGER TO D/C HOME. WILL CONTINUE TO MONITOR.
[2022-03-12 11:01] VITALS: BP 101/71; PULSE 85; TEMP 98
[2022-03-12] MEDS ORDERED: LIPITOR 40MG TA40 MG PO (11:47)
[2022-03-12] MEDS ORDERED: ASPIRIN E.C. 8181 MG PO (11:48)
--- NOTE | 2022-03-12 12:32 | NUR ---
DISCHARGE INSTRUCTIONS GIVEN, ALL QUESTIONS ANSWERED. TELE D/C. IV D/C. WILL ESCORT PT DOWN TO VEHICLE WITH BELINGINGS. WILL D/C FROM SYSTEM.
== END 2022-03-12 13:04 | disposition home or self-care (01) ==
LOC: MEDICAL 20:05
PROVIDERS: Student in an Organized Health Care Education/Training Program; ADMIT Student in an Organized Health Care Education/Training Program
DX: R53.1 Weakness (principal); I63.9 Cerebral infarction, unspecified; Q85.01 Neurofibromatosis, type 1; E78.5 Hyperlipidemia, unspecified; I10 Essential (primary) hypertension; G89.29 Other chronic pain; M25.519 Pain in unspecified shoulder; F41.9 Anxiety disorder, unspecified; F41.0 Panic disorder [episodic paroxysmal anxiety]; Z79.01 Long term (current) use of anticoagulants; Z98.890 Other specified postprocedural states; Z79.899 Other long term (current) drug therapy; Z87.891 Personal history of nicotine dependence
CPT/HCPCS: 99232-AI; A9575; G0378; J1650

== ENCOUNTER 2024-05-19 00:14 | Inpatient (IN) | payer MEDICARE, MEDICAID ==
[~2024-05-19] VITALS: Ht 154.9 cm; Wt 77.5 kg
[2024-05-19] VITALS (919 sets, daily range): BP systolic 94–136; BP diastolic 58–107; PULSE 75–98; TEMP 97.6–98.4; O2SAT 72–100
[~2024-05-19 00:14] MED LIST changes: +ASPIRIN E.C. 8181 MG PO; +KEPPRA 500MG500 MG PO; +KLONOPIN 1MG1 MG PO; -KLONOPIN2 MG PO; -LEXAPRO 10MG10 MG PO; +LEXAPRO20 MG PO; +PERCOCET 325 MG1 TAB PO; +STOOL SOFTENER100 M2 PO
[2024-05-19] MEDS ORDERED: Acetaminophen 325 MG TAB PO PRN (01:15)
[2024-05-19] MEDS ORDERED: Dextrose 50% Water 25 GM/50 ML SYRINGE IV PRN (01:15)
[2024-05-19] MEDS ORDERED: Docusate Sodium 100 MG CAP PO PRN (01:15)
[2024-05-19] MEDS ORDERED: Ondansetron 4 MG/2 ML VIAL IV PRN (01:15)
[2024-05-19] MEDS ORDERED: Polyethylene Glycol 3350 17 GM PDS PO PRN (01:15)
[2024-05-19] MEDS ORDERED: Albuterol/Ipratropium 3 MG-0.5 MG/3 ML Neb Soln IH PRN (01:45)
--- NOTE | 2024-05-19 02:37 | NUR ---
RECIEVED REPORT FROM MONISHA GANDARA IN [facility] [facility] ED. PATIENT ARRIVED BY EMS AT 0035. ALL BELONGINGS WITH PATIENT AT TIME OF TRANSFER. PATIENT ALERT AND ORIENTED UPON ARRIVAL.
[2024-05-19 06:08] LABS: CHOLESTEROL RISK RATIO 6.8
--- NOTE | 2024-05-19 07:00 | NUR ---
REPORT RECEIVED FROM JULIOCESAR CARIAS. PT RESTING IN BED, VSS. PT ON 2L O2 PER NC WHILE IN BED. NO DRIPS INFUSING AT THIS TIME. PT ALERT AND ORIENTED, NO RESIDUAL DEFICITS NOTED POST CVA. CALL LIGHT IN REACH, BED ALARM ON.
[2024-05-19] MEDS ORDERED: Pantoprazole 40 MG in NS 10 ML IV SCH (09:00)
[2024-05-19] MEDS ORDERED: Escitalopram 10 MG TAB PO SCH (09:00)
[2024-05-19] MEDS ORDERED: levETIRAcetam 500 MG TAB PO SCH (09:00)
[2024-05-19] MEDS ORDERED: ATARAX 25MG25 MG/TAB PO (10:00)
[2024-05-19] MEDS ORDERED: PRISTIQ 50 MG T50 MG PO (10:00)
[2024-05-19] MEDS ORDERED: KLONOPIN 1MG1 MG PO (10:11)
[2024-05-19] MEDS ORDERED: NEURONTIN600 MG/TAB PO (10:19)
--- NOTE | 2024-05-19 11:41 | NUR ---
Observation: Pt was siting in her chair watching charmed. Pt mentioned that she was doing ok. Pt mentioned that she was [employer] and that she been questioning somethings that the catholics do and been looking at different churches to go to. Enjoyed talking with the therapy aide. Interventions: therapy aide provided active listening and reflecting with the patient. Bulb Inspector acknoledged some ofthe feelings that were brought up. Bulb Inspector invited to reminisce. Bulb Inspector provided a rosery for the pt and which pt was happy about it. Outcomes: therapy aide affirmed in pt's belief and encouraged her to still be feel comfortable where she wants to worhsip at. therapy aide established rapport and connectedness. Bulb Inspector helped with making pt feel comfortable.
[2024-05-19] MEDS ORDERED: Gabapentin 300 MG CAP PO SCH ×2 (14:00→21:00)
--- NOTE | 2024-05-19 15:33 | NUR ---
barrow worker helper met with patient to complete the discharge planning intial assessment. Patient resides with her spouse, Devin, in [place] and will return there upon discharge. Patient has 29 private duty hours through the [employer] [facility]. Patient also receives home health, RN visits for medication administration with [facility] and will continue this post discharge. Continued physical therapy was discussed and patient would like to receive that from [facility]. Patient and worker contacted Vanda with [facility] and she advised that they could add therapy to their care plan. Patient's primary care provider is Dr Asencio and Lucia Henry. Patient has had a previous stroke and utilizes a wheelchair and an electric wheelchair for mobilization. Patient has a bath bench as well. Patient has a durable power of disability attorney on file that names her spouse, Devin#[phone]. Patient plans home with home health from [facility] and her private duty care. Patient has Medicare [employer] and [employer] and states that it covers her medications. Discharge plan: Home with spouse and resume home health with [facility] for RN and PT visits.
--- NOTE | 2024-05-19 15:54 | NUR ---
pt care taken over from daniel RN. pt noted to be laying in bed comfortable on room air alert and oriented. pt is talking on the phone RN unable to indroduce self to patient at this time.
[2024-05-19] MEDS ORDERED: Atorvastatin 80 MG TAB PO SCH (21:00)
[2024-05-19] MEDS ORDERED: Atorvastatin 40 MG TAB PO SCH (21:00)
--- NOTE | 2024-05-19 23:44 | NUR ---
Received report from JULIOCESAR Pablo and JULIOCESAR Darnell. Pt is alert and lying in bed. Pt has no drips or IVF's running at this time. Bed is in low and alarms are on. Call light is within reach. Will continue with pt care.
[2024-05-20] VITALS (508 sets, daily range): BP systolic 108–127; BP diastolic 54–96; PULSE 71–85; TEMP 97.3–97.8; O2SAT 94–100
[2024-05-20 06:00] LABS: BASO # 0.1 K/mm3 (0.0-0.2); BASO % 0.6 % (0.0-2.0); EOS # 0.2 K/mm3 (0.0-0.7); EOS % 2.1 % (0.0-4.0); GRAN # 5.1 K/mm3 (1.4-6.5); GRAN % 60.3 % (42.2-75.2); HEMATOCRIT 40.2 % (37.0-47.0); HEMOGLOBIN 13.4 g/dl (12.5-16.0); LYMPH # 2.4 K/mm3 (1.2-3.4); LYMPH % 28.6 % (20.0-51.0); MEAN CELL VOLUME 82 fl (80.0-100.0); MEAN CORPUSCULAR HEMOGLOBIN 28 pg (27-31); MEAN CORPUSCULAR HGB CONC 33 g/dl (33.0-37.0); MEAN PLATELET VOLUME 9.9 fl (7.4-10.4); MONO # 0.7 K/mm3 (0.1-0.6); MONO % 7.9 % (1.7-9.3); PLATELET COUNT 199 K/mm3 (130-400); RED BLOOD COUNT 4.88 M/mm3 (4.10-5.30); REDCELL DISTRIBUTION WIDTH-CV 13.3 % (11.5-14.5)
[2024-05-20 06:17] LABS: CALCIUM 8.8 mg/dL (8.4-10.2); CREATININE, serum 0.77 mg/dL (0.57-1.11); POTASSIUM 3.8 mEq/L (3.5-4.5)
--- NOTE | 2024-05-20 06:53 | NUR ---
Pt had an uneventful night. Vitals have been stable throughout the night. Pt on 2 L O2 via NC throughout the night. Pt's NIH scale has not changed throughout the night and had no complaints of any changes. Neurologist talked to the pt last night at the beginning of the shift. Pt is not on any drips or IVF's at this time. Pt is currently resting in bed with call light within reach and bed in low position and bed alarms on. Will give report to day shift nurse.
[2024-05-20] MEDS ORDERED: LIPITOR 80MG80 MG PO (11:56)
--- NOTE | 2024-05-20 11:57 | NUR ---
Data: Spiritual care visit attempted twice. First time Patient was indisposed. Second time Patient was sleeping. Assessment: None at this time. Plan of Care: Chaplains will remain available as needed/requested while Patient is admitted to this hospital.
--- NOTE | 2024-05-20 12:40 | NUR ---
READ THE PATIENT'S DISCHARGE DOCUMENTS. EMPHASIZED THE IMPORTANCE OF FOLLOWING UP WITH HER PCP AND NEUROLOGIST. ALSO EMPHASIZED THE IMPORTANCE OF SMOKING CESSATION. PATIENT VERBALIZED UNDERSTANDING. PATIENT ALSO EDUCATED ON MEDICATIONS THAT HAD BEEN D/C'd. IV DISCONTINUED. PATIENT IS PRESENT WITH HER . THIS NURSE WALKED PATIENT AND OUT, AND HELPED THE PATIENT INTO THEIR VEHICLE.
--- NOTE | 2024-05-20 15:40 | NUR ---
Discharge orders and clinical updates faxed to [facility]. Patient discharged to home with spouse
== END 2024-05-20 12:40 | disposition home or self-care (01) | DRG 92 ==
LOC: ICU 00:14
PROVIDERS: ADMIT Internal Medicine
DX: R47.81 Slurred speech (principal); I69.352 Hemiplegia and hemiparesis following cerebral infarction affecting left dominant side; H54.7 Unspecified visual loss; R29.898 Other symptoms and signs involving the musculoskeletal system; N39.3 Stress incontinence (female) (male); G89.29 Other chronic pain; M25.511 Pain in right shoulder; I10 Essential (primary) hypertension; R09.02 Hypoxemia; J44.9 Chronic obstructive pulmonary disease, unspecified; F41.9 Anxiety disorder, unspecified; F32.A Depression, unspecified; E78.5 Hyperlipidemia, unspecified; G43.909 Migraine, unspecified, not intractable, without status migrainosus; R29.810 Facial weakness; M21.372 Foot drop, left foot; K21.9 Gastro-esophageal reflux disease without esophagitis; E66.9 Obesity, unspecified; F41.0 Panic disorder [episodic paroxysmal anxiety]; I65.01 Occlusion and stenosis of right vertebral artery; F17.210 Nicotine dependence, cigarettes, uncomplicated; Z79.02 Long term (current) use of antithrombotics/antiplatelets; Z79.82 Long term (current) use of aspirin; Q85.01 Neurofibromatosis, type 1; Z79.899 Other long term (current) drug therapy; Z88.6 Allergy status to analgesic agent; Z88.1 Allergy status to other antibiotic agents; Z88.5 Allergy status to narcotic agent; Z88.0 Allergy status to penicillin; Z88.8 Allergy status to other drugs, medicaments and biological substances; Z91.018 Allergy to other foods; Z91.148 Patient's other noncompliance with medication regimen for other reason; Z99.81 Dependence on supplemental oxygen; Z92.82 Status post administration of tPA (rtPA) in a different facility within the last 24 hours prior to admission to current facility; Z68.32 Body mass index [BMI] 32.0-32.9, adult
CPT/HCPCS: Q3014

== ENCOUNTER 2024-06-07 23:31 | Emergency (ER) | payer MEDICARE, MEDICAID ==
[~2024-06-07] VITALS: Ht 154.9 cm; Wt 71.0 kg
[~2024-06-07 23:31] MED LIST changes: +ATARAX 25MG25 MG/TAB PO; +LIPITOR 80MG80 MG PO; +PRISTIQ 50 MG T50 MG PO
[2024-06-07 23:32] VITALS: TEMP 97.9
[2024-06-08 01:07] LABS: URINE APPEARANCE CLEAR (CLEAR/HAZY); URINE BLOOD NEGATIVE (NEGATIVE); URINE COLOR YELLOW (YELLOW); URINE GLUCOSE NEGATIVE (NEGATIVE); URINE KETONE NEGATIVE (NEGATIVE); URINE NITRATE NEGATIVE (NEGATIVE); URINE PROTEIN(semi-quant) NEGATIVE (NEGATIVE); URINE UROBILINOGEN 0.2 E.U/dL (0.2-1.0)
[2024-06-08 01:23] LABS: COLLECTION METHOD CLEAN CATCH
[2024-06-08 02:13] VITALS: BP 142/98; PULSE 80
== END 2024-06-08 02:13 | disposition home or self-care (01) ==
LOC: COL.ER 23:31
PROVIDERS: Emergency Medicine
DX: M54.50 Low back pain, unspecified (principal); M25.512 Pain in left shoulder; E66.9 Obesity, unspecified; Z68.29 Body mass index [BMI] 29.0-29.9, adult; Z79.02 Long term (current) use of antithrombotics/antiplatelets; W18.30XA Fall on same level, unspecified, initial encounter; Y93.01 Activity, walking, marching and hiking; Y92.091 Bathroom in other non-institutional residence as the place of occurrence of the external cause